=== PATIENT | female | born 1975 | race Hispanic/Latino ===

== ENCOUNTER 2018-03-16 09:12 | Emergency (ER) | payer OTHER ==
[2018-03-16] MEDS ORDERED: HYDROCODONE/APAP 5/325 MG TAB ONE (10:49)
--- NOTE | 2018-03-16 11:09 | RAD REPORT ---
EXAM DESCRIPTION: RAD - Chest Pa And Lat (2 Views) - 03/16/2018 10:59 am CLINICAL HISTORY: posterior right chest pain;Cough Chest pain. COMPARISON: No comparisons FINDINGS: The lungs are clear. The heart is normal in size. No displaced fractures. IMPRESSION: No acute or concerning finding suspected.
--- NOTE | 2018-03-16 11:12 | ER ---
Nurse's Notes [facility] Name: Carie Spear Age: 43 yrs Sex: Female : 1975 Arrival Date: 03/16/2018 Time: 09:17 Bed 13 Private MD: Diagnosis: Chest pain on breathing-posterior right Presentation: 03/16 09:25 Presenting complaint: Patient states: i started hurting on my R flank area since Friday, like a pulsating pain; last night i cant handle it anymore; denies burning urination or radiating pain; denies hx of kidney stones; denies fever and chills;. Transition of care: patient was not received from another setting of care. Onset of symptoms was March 16, 2018. Risk Assessment: Do you want to hurt yourself or someone else? Patient reports no desire to harm self or others. Initial Sepsis Screen: Does the patient meet any 2 criteria? No. Patient's initial sepsis screen is negative. Does the patient have a suspected source of infection? No. Patient's initial sepsis screen is negative. Care prior to arrival: None. 09:25 Method Of Arrival: Ambulatory 09:25 Acuity: ALFRED 3 Triage Assessment: 09:28 General: Appears in no apparent distress. uncomfortable, Behavior is calm, cooperative, hj appropriate for age. Pain: Complains of pain in left low back, right mid back and right low back Pain currently is 3 out of 10 on a pain scale. 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 - Social history:: Smoking status: Patient/guardian denies using tobacco, Patient uses alcohol, occasionally. - Ebola Screening: : Patient negative for fever greater than or equal to 101.5 degrees Fahrenheit, and additional compatible Ebola Virus Disease symptoms Patient denies exposure to infectious person Patient denies travel to an Ebola-affected area in the 21 days before illness onset. Screenin:28 Abuse screen: Denies threats or abuse. Denies injuries from another. Nutritional hj screening: No deficits noted. Tuberculosis screening: No symptoms or risk factors identified. Fall Risk None identified. Assessment: 09:59 General: Appears in no apparent distress. comfortable, slender, well groomed, Behavior ph is calm, cooperative, appropriate for age, Reports Pt states, " I had a bad cough last week and the pain in my back started after a coughing fit." Denies fever, feeling ill. Pain: Complains of pain in right mid back Aggravated by repositioning. Neuro: Level of Consciousness is awake, alert, obeys commands, Oriented to person, place, time, situation. Cardiovascular: Capillary refill < 3 seconds in bilateral fingers Patient's skin is warm and dry. Respiratory: Reports pain with movement Airway is patent Respiratory effort is even, unlabored, Respiratory pattern is regular, symmetrical, Breath sounds are clear bilaterally. GI: Patient currently denies abdominal pain, diarrhea, nausea, vomiting. : Reports Denies burning with urination, urinary frequency. Derm: Skin is intact, is healthy with good turgor, Skin is pink, warm \\T\\ dry. Musculoskeletal: Circulation, motion, and sensation intact. Range of motion: intact in all extremities. 10:32 Reassessment: Patient appears in no apparent distress at this time. Patient and/or ph family updated on plan of care and expected duration. Pain level reassessed. Patient is alert, oriented x 3, equal unlabored respirations, skin warm/dry/pink. Pt resting quietly, awaiting CXR, family at bedside. 11:25 Reassessment: Patient appears in no apparent distress at this time. Patient and/or ph family updated on plan of care and expected duration. Pain level reassessed. Patient is alert, oriented x 3, equal unlabored respirations, skin warm/dry/pink. Pt reports that pain has improved to /10, d/c home w/ work note. Vital Signs: 09:29 BP 118 / 86; Pulse 75; Resp 18; Temp 97.5(TE); Pulse Ox 100% on R/A; Weight 68.04 kg; Height 5 ft. 1 in. (154.94 cm); Pain 3/10; 11:26 BP 115 / 78; Pulse 71; Resp 18; Pulse Ox 98% on R/A; ph 09:29 Body Mass Index 28.34 (68.04 kg, 154.94 cm) hj ED Course: 09:17 Patient arrived in ED. as 09:27 Triage completed. hj 09:29 Arm band placed on right wrist. hj 09:31 Patient has correct armband on for positive identification. Placed in gown. Bed in low hj position. Call light in reach. Side rails up X 1. Adult w/ patient. 09:32 Laurie Patiño RN is Primary Nurse. ph 09:34 Janelle Saavedra FNP-C is PHCP. kb 09:34 David Duran MD is Attending Physician. kb 10:04 Urine collected: clean catch specimen, clear. ph 10:55 Chest Pa And Lat (2 Views) XRAY In Process Unspecified. EDMS 11:03 No provider procedures requiring assistance completed. ph 11:27 Patient did not have IV access during this emergency room visit. ph Administered Medications: 11:01 Drug: [place] 5 mg-325 mg 1 tabs Route: PO; ph 11:29 Follow up: Response: No adverse reaction; Pain is decreased ph Outcome: 11:12 Discharge ordered by . kb 11:27 Discharged to home ambulatory, with significant other. ph 11:27 Condition: good 11:27 Discharge instructions given to patient, Instructed on discharge instructions, follow up and referral plans. medication usage, Demonstrated understanding of instructions, follow-up care, medications, Prescriptions given X 1. 11:29 Patient left the ED. ph Signatures: Dispatcher [employer] EDMS Janelle Saavedra FNP-C FNP-Mira Jameson as Laurie Patiño RN RN Jens Vanessa RN RN Corrections: (The following items were deleted from the chart) 09:31 09:29 Pulse 75bpm; Resp 18bpm; Pulse Ox 100% RA; Temp 97.5F Temporal; 68.04 kg; Height hj 5 ft. 1 in.; BMI: 28.3; Pain 3/10; hj 11:27 11:25 Reassessment: Patient appears in no apparent distress at this time. Patient ph and/or family updated on plan of care and expected duration. Pain level reassessed. Patient is alert, oriented x 3, equal unlabored respirations, skin warm/dry/pink. Pt reports that pain has improved to 4/10, d/c home w/ work note ph
--- NOTE | 2018-03-16 11:12 | EDPHYS ---
Physician Documentation [facility] Name: Carie Spear Age: 43 yrs Sex: Female : 1975 Arrival Date: 03/16/2018 Time: 09:17 Bed 13 Private MD: ED Physician David Duran HPI: 03/16 10:57 This 43 yrs old Female presents to ER via Ambulatory with complaints of Flank kb Pain. 10:57 The patient presents with pain that is acute, with no known mechanism of injury. The kb symptoms are located in the right mid back. Onset: The symptoms/episode began/occurred 4 day(s) ago. The pain does not radiate. Associated signs and symptoms: The patient has no apparent associated signs or symptoms. The problem was sustained coughing. Modifying factors: The patient symptoms are alleviated by nothing, the patient symptoms are aggravated by any movement. Severity of symptoms: At their worst the symptoms were mild, moderate, in the emergency department the symptoms are unchanged. The patient has not experienced similar symptoms in the past. The patient has not recently seen a physician. 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 - Social history:: Smoking status: Patient/guardian denies using tobacco, Patient uses alcohol, occasionally. - Ebola Screening: : Patient negative for fever greater than or equal to 101.5 degrees Fahrenheit, and additional compatible Ebola Virus Disease symptoms Patient denies exposure to infectious person Patient denies travel to an Ebola-affected area in the 21 days before illness onset. ROS: 10:48 Constitutional: Negative for fever, chills, and weight loss, Cardiovascular: Negative kb for chest pain, palpitations, and edema, Respiratory: Negative for shortness of breath, cough, wheezing, and pleuritic chest pain, Abdomen/GI: Negative for abdominal pain, nausea, vomiting, diarrhea, and constipation, : Negative for injury, bleeding, discharge, and swelling, MS/Extremity: Negative for injury and deformity, Skin: Negative for injury, rash, and discoloration, Neuro: Negative for headache, weakness, numbness, tingling, and seizure. 10:48 Back: Positive for pain at rest, pain with movement, of the right mid back. Exam: 10:56 Constitutional: This is a well developed, well nourished patient who is awake, alert, kb and in no acute distress. Head/Face: Normocephalic, atraumatic. Chest/axilla: Normal chest wall appearance and motion. Nontender with no deformity. No lesions are appreciated. Cardiovascular: Regular rate and rhythm with a normal S1 and S2. No gallops, murmurs, or rubs. Normal PMI, no JVD. No pulse deficits. Respiratory: Lungs have equal breath sounds bilaterally, clear to auscultation and percussion. No rales, rhonchi or wheezes noted. No increased work of breathing, no retractions or nasal flaring. Abdomen/GI: Soft, non-tender, with normal bowel sounds. No distension or tympany. No guarding or rebound. No evidence of tenderness throughout. Skin: Warm, dry with normal turgor. Normal color with no rashes, no lesions, and no evidence of cellulitis. MS/ Extremity: Pulses equal, no cyanosis. Neurovascular intact. Full, normal range of motion. Neuro: Awake and alert, GCS 15, oriented to person, place, time, and situation. Cranial nerves II-XII grossly intact. Motor strength 5/5 in all extremities. Sensory grossly intact. Cerebellar exam normal. Normal gait. 10:56 Back: pain, that is mild, of the right mid back, ROM is normal, normal spinal alignment noted, CVA tenderness, is absent. Vital Signs: 09:29 BP 118 / 86; Pulse 75; Resp 18; Temp 97.5(TE); Pulse Ox 100% on R/A; Weight 68.04 kg; hj Height 5 ft. 1 in. (154.94 cm); Pain 3/10; 11:26 BP 115 / 78; Pulse 71; Resp 18; Pulse Ox 98% on R/A; ph 09:29 Body Mass Index 28.34 (68.04 kg, 154.94 cm) hj MDM: 09:34 Patient medically screened. kb 10:48 Data reviewed: vital signs, nurses notes. Data interpreted: Pulse oximetry: on room air kb is 100 %. Interpretation: normal. 11:11 Counseling: I had a detailed discussion with the patient and/or guardian regarding: the kb historical points, exam findings, and any diagnostic results supporting the discharge/admit diagnosis, lab results, radiology results, the need for outpatient follow up, a family practitioner, to return to the emergency department if symptoms worsen or persist or if there are any questions or concerns that arise at home. 03/16 09:57 Order name: Urine Dipstick--Ancillary (enter results) eb 03/16 09:57 Order name: Urine --Ancillary (enter results) eb 03/16 09:35 Order name: Urine Dipstick-Ancillary (obtain specimen); Complete Time: 10:04 kb 03/16 09:59 Order name: Chest Pa And Lat (2 Views) XRAY; Complete Time: 11:11 kb Administered Medications: 11:01 Drug: [place] 5 mg-325 mg 1 tabs Route: PO; ph 11:29 Follow up: Response: No adverse reaction; Pain is decreased ph Disposition: 16:58 Co-signature as Attending Physician, David Duran MD. rn Disposition: 03/16/18 11:12 Discharged to Home. Impression: Chest pain on breathing - posterior right . - Condition is Stable. - Discharge Instructions: Costochondritis, [id number]. - Prescriptions for Diclofenac Sodium 75 mg Oral Tablet, Delayed Release (E.C.) - take 1 tablet by ORAL route 2 times per day As needed; 30 tablet. - Medication Reconciliation Form, Thank You Letter, Antibiotic Education, Prescription Opioid Use, Work release form form. - Follow up: Emergency Department; When: As needed; Reason: Worsening of condition. Follow up: Private Physician; When: 2 - 3 days; Reason: Recheck today's complaints, Continuance of care, Re-evaluation by your physician. Signatures: Dispatcher [employer] Janelle Tang, MILL ATTENDANT-C MILL ATTENDANT-David Dinh MD MD rn Hall, Patricia, RN RN ph Joaquin, Henry, RN RN Corrections: (The following items were deleted from the chart) 11:29 11:12 03/16/2018 11:12 Discharged to Home. Impression: Chest pain on breathing - ph posterior right . Condition is Stable. Forms are Medication Reconciliation Form, Thank You Letter, Antibiotic Education, Prescription Opioid Use. Follow up: Emergency Department; When: As needed; Reason: Worsening of condition. Follow up: Private Physician; When: 2 - 3 days; Reason: Recheck today's complaints, Continuance of care, Re-evaluation by your physician. kb
[2018-03-16 17:13] LABS: Urine Blood NEGATIVE (NEG); Urine Glucose NEGATIVE (NEG); Urine Protein NEGATIVE (NEG); Urine Specific Gravity 1.025 (1.005-1.030)
== END 2018-03-16 11:29 | disposition home or self-care (01) ==
LOC: ER 09:12
DX: R07.1 Chest pain on breathing (principal)
CPT/HCPCS: 71046; 81003; 81025; 99284